=== PATIENT | male | born 1965 | race Caucasian/White ===

== ENCOUNTER 2016-06-25 09:38 | Emergency (ER) | payer SELFPAY ==
[2016-06-25 09:46] VITALS: PULSE 61; TEMP 98.3; O2SAT 98
[2016-06-25 09:47] VITALS: BMI 28.2
[2016-06-25 09:54] VITALS: BP 134/72; RESP 16
--- NOTE | 2016-06-25 09:59 | ED PDOC ---
Lower Extremity Pain/Injury Time Seen by Provider: 06/25/16 09:52 Chief Complaint (Nursing): Lower Extremity Problem/Injury History Per: Patient (Twisted left knee 1 week ago while playing soccer. With pain medial aspect. Hasa been ambulating and working since injury.) Onset/Duration Of Symptoms: Days (7) Current Symptoms Are (Timing): Still Present Severity: Mild Pain Scale Rating Of: 2 Past Medical History Vital Signs: Last Vital Signs Temp 98.3 F 06/25/16 09:52 Pulse 61 06/25/16 09:52 Resp 16 06/25/16 09:52 BP 134/72 06/25/16 09:52 Pulse Ox 98 06/25/16 09:52 - Medical History PMH: No Chronic Diseases - Surgical History Other surgeries: Left ankle fracture - Family History Family History: States: Unknown Family Hx - Home Medications Home Medications: Ambulatory Orders Medication Instructions Recorded Naproxen [Naprosyn] 500 mg PO Q12H #20 tab 06/25/16 - Allergies Allergies/Adverse Reactions: Allergies Allergy/AdvReac Type Severity Reaction Status Date / Time No Known Allergies Allergy Unverified 10/03/13 12:20 Review of Systems Constitutional: Negative for: Fever Musculoskeletal: Positive for: Other (Left knee pain) Neurological: Negative for: Weakness, Numbness Physical Exam - Physical Exam Appears: Positive for: Non-toxic, No Acute Distress Skin: Positive for: Normal Color, Warm, DRY Extremity: Positive for: Other (Left knee FROM no swelling or deformity. Tenderness medially. No instability.) Neurologic/Psych: Positive for: Alert, Oriented. Negative for: Motor/Sensory Deficits - ECG O2 Sat by Pulse Oximetry: 98 Disposition - Clinical Impression Clinical Impression: Knee sprain - Patient ED Disposition Is Patient to be Admitted: No Counseled Patient/Family Regarding: Studies Performed, Diagnosis, Need For Followup, Rx Given - Disposition Referrals: Sergio Chung III, MD [Staff Provider] - Disposition: Routine/Home Disposition Time: 10:25 Condition: FAIR Prescriptions: Naproxen [Naprosyn] 500 mg PO Q12H #20 tab Instructions: Knee Sprain (ED) Print Language: AFGHAN
--- NOTE | 2016-06-25 10:47 | RAD ---
PROCEDURE: Left Knee Radiographs. HISTORY: COMPARISON: None available. FINDINGS: BONES: No acute displaced fracture. JOINTS: No dislocation. JOINT EFFUSION: Small to moderate suprapatellar joint effusion. OTHER FINDINGS: None. IMPRESSION: Small to moderate suprapatellar joint effusion.
== END 2016-06-25 10:56 | disposition home or self-care (01) ==
LOC: H.ER 09:38
DX: S83.402A Sprain of unspecified collateral ligament of left knee, initial encounter (principal); X50.9XXA Other and unspecified overexertion or strenuous movements or postures, initial encounter; Y92.322 Soccer field as the place of occurrence of the external cause

== ENCOUNTER 2016-07-04 10:44 | Emergency (ER) | payer SELFPAY ==
[2016-07-04 10:44] VITALS: BMI 28.2
[2016-07-04 10:52] VITALS: BP 133/86; PULSE 71; RESP 20; TEMP 98.4; O2SAT 98
== END 2016-07-04 11:52 | disposition left against medical advice (07) ==
LOC: H.EDERROR 10:44 → H.ER 10:44 → H.EDERROR 11:52
DX: Z02.89 Encounter for other administrative examinations (principal)